=== PATIENT | male | born 1960 | race Two or more races ===

== ENCOUNTER 2020-12-21 23:04 | Emergency (ER) | payer MEDICAID ==
--- NOTE | 2020-12-21 23:58 | EDM.PDOC ---
ED HPI GENERAL MEDICAL PROBLEM - General Chief Complaint: Upper Extremity Injury/Pain Stated Complaint: L SHOULDER AND NECK PAIN Time Seen by Provider: 12/21/20 23:12 Source of Information: Reports: Patient History Limitations: Reports: No Limitations - History of Present Illness INITIAL COMMENTS - FREE TEXT/NARRATIVE: The patient presents with left sided neck pain. This stared a couple days ago after he woke up. He does not recall any injury. 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 He also has pain to the posterior shoulder. He has no numbness or weakness down the left arm. He has no fever, chills, cough, congestion, runny nose, chest pain or shortness of breath, abdominal pain, nausea or vomiting. Onset: Gradual Duration: Day(s): (2) Location: Reports: Neck, Upper Extremity, Left (shoulder) Quality: Reports: Sharp Severity: Moderate Improves with: Reports: Immobilization Worsens with: Reports: Movement Context: Denies: Trauma Associated Symptoms: Reports: No Other Symptoms Left Shoulder Pain Score (Numeric/FACES): 7 - Related Data Allergies Allergy/AdvReac Type Severity Reaction Status Date / Time No Known Allergies Allergy Verified 12/21/20 23:13 Home Meds: Home Meds ALPRAZolam [Xanax] ASDIRECTED 12/21/20 [History] Dutasteride ASDIRECTED 12/21/20 [History] Finasteride 5 mg PO ASDIRECTED 12/21/20 [History] Ketoconazole [Xolegel] ASDIRECTED 12/21/20 [History] LORazepam [Ativan] 2 mg PO Q6H PRN 12/21/20 [History] Losartan [Cozaar] 50 mg PO DAILY 12/21/20 [History] Metoprolol Succinate 50 mg PO ASDIRECTED 12/21/20 [History] Nystatin [Nystatin Crm] ASDIRECTED 12/21/20 [History] Omeprazole 20 mg PO ASDIRECTED 12/21/20 [History] atorvaSTATin [Lipitor] 10 mg PO ASDIRECTED 12/21/20 [History] fluocinolone acetonide oiL [Flac Otic Oil] 20 ml OT ASDIRECTED 12/21/20 [History] Cyclobenzaprine [Flexeril] 10 mg PO TID PRN #20 tab 12/22/20 [Rx] Past Medical History - Past Health History Medical/Surgical History: Denies Medical/Surgical History HEENT History: Reports: Impaired Vision Cardiovascular History: Reports: High Cholesterol, Hypertension Respiratory History: Reports: None Gastrointestinal History: Reports: GERD Genitourinary History: Reports: None Musculoskeletal History: Reports: None Neurological History: Reports: None Psychiatric History: Reports: Anxiety Endocrine/Metabolic History: Reports: None Hematologic History: Reports: None Immunologic History: Reports: None Oncologic (Cancer) History: Reports: None Dermatologic History: Reports: None - Infectious Disease History Infectious Disease History: Reports: None Social & Family History - Family History Family Medical History: No Pertinent Family History - Tobacco Use Tobacco Use Status *Q: Never Tobacco User - Caffeine Use Caffeine Use: Reports: Coffee - Recreational Drug Use Recreational Drug Use: No Review of Systems - Review of Systems Review Of Systems: See Below Constitutional: Reports: No Symptoms Eyes: Reports: No Symptoms Ears: Reports: No Symptoms Nose: Reports: No Symptoms Mouth/Throat: Reports: No Symptoms Respiratory: Reports: No Symptoms Cardiovascular: Reports: No Symptoms GI/Abdominal: Reports: No Symptoms Genitourinary: Reports: No Symptoms Musculoskeletal: Reports: Neck Pain, Shoulder Pain ED EXAM, GENERAL - Physical Exam Exam: See Below Exam Limited By: No Limitations General Appearance: Alert, No Apparent Distress Ears: Normal External Exam Nose: Normal Inspection Head: Atraumatic, Normocephalic Neck: Other (Mild pain upon palpation to the left lateral neck and to the posterior shoulder. Good sensation and pulsed distally. He also has equal strength in his arms.) Respiratory/Chest: No Respiratory Distress, Lungs Clear, Normal Breath Sounds Cardiovascular: Regular Rate, Rhythm, No Edema, No Murmur GI/Abdominal: Soft, Non-Tender, No Organomegaly, No Mass Back Exam: Normal Inspection Extremities: Normal Inspection Course - Vital Signs Last Recorded V/S: Last Vital Signs Temp 97.3 F 12/21/20 23:24 Pulse 73 12/21/20 23:24 Resp 18 12/21/20 23:24 BP 110/95 H 12/21/20 23:24 Pulse Ox 94 L 12/21/20 23:24 - Orders/Labs/Meds Orders: Active Orders 24 hr Category Date Time Status Cervical Spine 2V or 3V [CR] Stat Exams 12/21/20 23:38 Taken - Re-Assessments/Exams Free Text/Narrative Re-Assessment/Exam: 12/21/20 23:57 I ordered an x-ray of his neck. 12/22/20 00:01 His x-ray shows some degenerative changes. He has an old chip fracture off of the spinous process of C7. I will get him on some flexeril. Departure - Departure Time of Disposition: 00:05 Disposition: Home, Self-Care 01 Condition: Good Clinical Impression: Cervical radiculopathy - Discharge Information *PRESCRIPTION DRUG MONITORING PROGRAM REVIEWED*: Not Applicable *COPY OF PRESCRIPTION DRUG MONITORING REPORT IN PATIENT JOSELIN: Not Applicable Prescriptions: Cyclobenzaprine [Flexeril] 10 mg PO TID PRN #20 tab PRN Reason: Pain Referrals: Barbara Canales NP [Primary Care Provider] - 1 Week Forms: ED Department Discharge Additional Instructions: Ice your neck for 15 minutes 3 times per day for 2 days. Take tylenol or motrin for the pain. You can also try the flexeril 10mg by mouth 3 times per day as needed for pain. Do not take that when you are driving. It can make you sleepy. Follow up with Karen Canales within a week. Please return if you are worse. Sepsis Event Note (ED) - Evaluation Sepsis Screening Result: No Definite Risk - Focused Exam Vital Signs: Vital Signs Temp Pulse Resp BP Pulse Ox 12/21/20 23:24 97.3 F 73 18 110/95 H 94 L - My Orders Last 24 Hours: My Active Orders 12/21/20 23:38 Cervical Spine 2V or 3V [CR] Stat - Assessment/Plan Last 24 Hours: My Active Orders 12/21/20 23:38 Cervical Spine 2V or 3V [CR] Stat
--- NOTE | 2020-12-22 05:53 | CR ---
Cervical spine: AP, lateral and odontoid views of the cervical spine were obtained. Comparison: No prior cervical spine imaging is available. Moderate disc space narrowing is noted at C5-6 with anterior osteophytes. Small osteophytes are noted anteriorly at C4-5. Vertebral body heights are maintained. Small calcification is noted off the tip of the spinous process of C7 which appears to be old. No acute fracture or subluxation is appreciated. Minimal scoliosis is noted. Impression: 1. Mild degenerative change as noted above. Mild scoliosis is also noted. 2. Nothing acute is seen on 3 view cervical spine study. Diagnostic code #2
== END 2020-12-22 00:10 | disposition home or self-care (01) ==
LOC: JD.ED 23:04
DX: M54.12 Radiculopathy, cervical region (principal); E78.00 Pure hypercholesterolemia, unspecified; I10 Essential (primary) hypertension; K21.9 Gastro-esophageal reflux disease without esophagitis; Z79.899 Other long term (current) drug therapy
CPT/HCPCS: 72040; 72040-26; 99283

== ENCOUNTER 2021-01-17 19:35 | Emergency (ER) | payer MEDICAID ==
--- NOTE | 2021-01-17 20:42 | EDM.PDOC ---
ED HPI GENERAL MEDICAL PROBLEM - General Chief Complaint: ENT Problem Stated Complaint: ear pain Time Seen by Provider: 01/17/21 19:50 Source of Information: Reports: Patient, RN Notes Reviewed History Limitations: Reports: No Limitations - History of Present Illness INITIAL COMMENTS - FREE TEXT/NARRATIVE: Patient is a 60-year-old male presenting to the emergency department with complaints of bilateral ear pain. He developed symptoms approximately 4 days ago. He was seen at the [facility] on January 13 and started on Augmentin and Fluocinolone Acetonide oil drops. Prescription was for a 7-day course of Augmentin, however he increase the dose to 3 times daily and finished his last dose this morning. Reports ongoing throbbing pain in both ears. He has had no fever, chills, nausea, or vomiting. 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 He is scheduled to see an ENT specialist in [place] on Friday. Bilateral Ear Pain Score (Numeric/FACES): 6 - Related Data Allergies Allergy/AdvReac Type Severity Reaction Status Date / Time No Known Allergies Allergy Verified 01/17/21 19:43 Home Meds: Home Meds Losartan [Cozaar] 50 mg PO DAILY 12/21/20 [History] Nystatin [Nystatin Crm] 1 applic OP ASDIRECTED 12/21/20 [History] Omeprazole 20 mg PO ASDIRECTED 12/21/20 [History] atorvaSTATin [Lipitor] 10 mg PO ASDIRECTED 12/21/20 [History] fluocinolone acetonide oiL [Flac Otic Oil] 20 ml OT ASDIRECTED 12/21/20 [History] Aspirin 81 mg PO DAILY 01/17/21 [History] Cefdinir [Omnicef] 300 mg PO BID #20 cap 01/17/21 [Rx] Fluticasone Propionate [Flonase] 16 gm NS DAILY #1 bottle 01/17/21 [Rx] Hydrocodone/Acetaminophen [Hydrocodone-Acetamin 5-325 mg] 1 each PO Q4H PRN #12 tablet 01/17/21 [Rx] Past Medical History - Past Health History Medical/Surgical History: Denies Medical/Surgical History HEENT History: Reports: Impaired Vision, Other (See Below) Other HEENT History: Ruptured Ear Drum Cardiovascular History: Reports: High Cholesterol, Hypertension Respiratory History: Reports: None Gastrointestinal History: Reports: GERD Genitourinary History: Reports: None Musculoskeletal History: Reports: None Neurological History: Reports: None Psychiatric History: Reports: Anxiety Endocrine/Metabolic History: Reports: None Hematologic History: Reports: None Immunologic History: Reports: None Oncologic (Cancer) History: Reports: None Dermatologic History: Reports: None - Infectious Disease History Infectious Disease History: Reports: None Social & Family History - Family History Family Medical History: No Pertinent Family History - Tobacco Use Tobacco Use Status *Q: Never Tobacco User - Caffeine Use Caffeine Use: Reports: Coffee - Recreational Drug Use Recreational Drug Use: No ED ROS ENT - Review of Systems Review Of Systems: Comprehensive ROS is negative, except as noted in HPI. ED EXAM, ENT - Physical Exam Exam: See Below Exam Limited By: No Limitations General Appearance: Alert, WD/WN, No Apparent Distress Ears: Other (Significant scar tissue to bilateral TMs. There does appear to be some areas of bulging as well as erythema bilaterally.). No: TM Blood Neck: Normal Inspection, Supple, Non-Tender, Full Range of Motion Respiratory/Chest: No Respiratory Distress, Lungs Clear, Normal Breath Sounds, No Accessory Muscle Use, Chest Non-Tender Cardiovascular: Normal Peripheral Pulses, Regular Rate, Rhythm, No Edema, No Gallop, No JVD, No Murmur, No Rub Neurological: Alert, Oriented, CN II-XII Intact, Normal Cognition, Normal Gait, Normal Reflexes, No Motor/Sensory Deficits Psychiatric: Normal Affect, Normal Mood Skin: Warm, Dry, Intact, Normal Color, No Rash Course - Vital Signs Last Recorded V/S: Last Vital Signs Temp 97.2 F 01/17/21 19:40 Pulse 88 01/17/21 19:40 Resp 16 01/17/21 19:40 BP 126/70 01/17/21 19:40 Pulse Ox 99 01/17/21 19:40 - Re-Assessments/Exams Free Text/Narrative Re-Assessment/Exam: Patient is a 60-year-old male presenting to the emergency department with complaints of bilateral ear pain to the bilateral TMs. . This began about 4 days ago. He was put on Augmentin for 7-day course, however he took it 3 times daily, therefore he finished his treatment this morning. Denies any improvement in the pain. He has history of bilateral ruptured eardrums. On exam, there is a significant amount of scar tissue. There is some underlying erythema and bulging bilaterally. I will start patient on a prescription of cefdinir and have him continue his eardrops. Also recommend Flonase nasal spray. Patient will be given hydrocodone with Tylenol for pain. He has an appointment with an ENT specialist on Friday. Recommend that he keep this for evaluation. Discharge instructions as documented. Departure - Departure Time of Disposition: 20:42 Disposition: Home, Self-Care 01 Condition: Good Clinical Impression: Otitis media Qualifiers: Otitis media type: suppurative Chronicity: acute Laterality: bilateral Recurrence: recurrent Spontaneous tympanic membrane rupture: without spontaneous rupture Qualified Code(s): H66.006 - Acute suppurative otitis media without spontaneous rupture of ear drum, recurrent, bilateral - Discharge Information *PRESCRIPTION DRUG MONITORING PROGRAM REVIEWED*: Yes *COPY OF PRESCRIPTION DRUG MONITORING REPORT IN PATIENT JOSELIN: No Prescriptions: Fluticasone Propionate [Flonase] 16 gm NS DAILY #1 bottle Hydrocodone/Acetaminophen [Hydrocodone-Acetamin 5-325 mg] 1 each PO Q4H PRN #12 tablet PRN Reason: Pain Cefdinir [Omnicef] 300 mg PO BID #20 cap Instructions: Otitis Media, Adult, [id number] Referrals: Barbara Canales NP [Primary Care Provider] - Additional Instructions: You were seen in the emergency department today for pain to both of your ears. There does appear to be ongoing infection. You have been started on cefdinir which is an antibiotic. Take this as prescribed. Recommend continue eardrops as previously prescribed. Use of Flonase nasal spray, 1 spray to each nostril daily. Recommend Tylenol and ibuprofen routinely for pain. For pain not relieved by this, a prescription of hydrocodone with Tylenol has been provided. Take this only as prescribed. Do not work or drive for 12 hours after taking this as this can be sedating. Keep your appointment with the ENT specialist in [place] as scheduled. Return to ER for any new or worsening symptoms. Sepsis Event Note (ED) - Evaluation Sepsis Screening Result: No Definite Risk - Focused Exam Vital Signs: Vital Signs Temp Pulse Resp BP Pulse Ox 01/17/21 19:40 97.2 F 88 16 126/70 99
== END 2021-01-17 20:55 | disposition home or self-care (01) ==
LOC: JD.ED 19:35
DX: H66.006 Acute suppurative otitis media without spontaneous rupture of ear drum, recurrent, bilateral (principal); E78.00 Pure hypercholesterolemia, unspecified; I10 Essential (primary) hypertension; Z79.899 Other long term (current) drug therapy
CPT/HCPCS: 99282; 99283

== ENCOUNTER 2021-02-13 03:01 | Emergency (ER) | payer MEDICAID ==
--- NOTE | 2021-02-13 03:50 | EDM.PDOC ---
ED HPI GENERAL MEDICAL PROBLEM - General Chief Complaint: ENT Problem Stated Complaint: RT EAR PAIN Time Seen by Provider: 02/13/21 03:26 Source of Information: Reports: Patient History Limitations: Reports: No Limitations - History of Present Illness INITIAL COMMENTS - FREE TEXT/NARRATIVE: Mr. Cobb is a very pleasant 60-year-old man who now presents the ED stating that he developed a pulsating pressure sensation in his right ear yesterday morning, 02/12/2021. No associated fever, nasal or sinus congestion. No decreased hearing. He states that he has experienced the same sensation numerous times over the past year or so. He states that he has been seen at the [facility] on 2 prior occasions, and that no abnormalities were found, but that he was prescribed some sort of an eardrop that helped with the sensation. He does not recall the name of that eardrop. He has not taken any [id number] or home remedies since the onset of his symptoms. Here in the ED this morning, the patient is found to be hemodynamically stable, afebrile, saturating 98% on room air. He appears to be comfortable, in no acute distress. Prior to yesterday morning, the patient denies having a recent fever, chills, sore throat, ear pain, nasal or sinus congestion, cough, dyspnea, chest pain, palpitations, nausea, vomiting, constipation, diarrhea, abdominal pain, urinary symptoms, recent weight gain or weight loss, recent bloody bowel movements or black bowel movements, recent joint aches, headaches, or rashes. The patient's PCP is Barbara Canales NP. He sees SANAZ Gutierrez, at the [facility]. He has received 2 COVID vaccinations. Right Ear Pain Score (Numeric/FACES): 7 - Related Data Allergies Allergy/AdvReac Type Severity Reaction Status Date / Time No Known Allergies Allergy Verified 01/17/21 19:43 Home Meds: Home Meds Losartan [Cozaar] 50 mg PO DAILY 12/21/20 [History] Nystatin [Nystatin Crm] 1 applic OP ASDIRECTED 12/21/20 [History] Omeprazole 20 mg PO ASDIRECTED 12/21/20 [History] atorvaSTATin [Lipitor] 10 mg PO ASDIRECTED 12/21/20 [History] fluocinolone acetonide oiL [Flac Otic Oil] 20 ml OT ASDIRECTED 12/21/20 [History] Aspirin 81 mg PO DAILY 01/17/21 [History] Cefdinir [Omnicef] 300 mg PO BID #20 cap 01/17/21 [Rx] Fluticasone Propionate [Flonase] 16 gm NS DAILY #1 bottle 01/17/21 [Rx] Hydrocodone/Acetaminophen [Hydrocodone-Acetamin 5-325 mg] 1 each PO Q4H PRN #12 tablet 01/17/21 [Rx] Past Medical History HEENT History: Reports: Impaired Vision (wears glasses), Other (See Below) (Ruptured left TM) Cardiovascular History: Reports: High Cholesterol, Hypertension Gastrointestinal History: Reports: GERD Psychiatric History: Reports: Anxiety (untreated) - Past Surgical History HEENT Surgical History: Reports: Adenoidectomy, Tonsillectomy GI Surgical History: Reports: Appendectomy, EGD (x 1) Social & Family History - Tobacco Use Tobacco Use Status *Q: Never Tobacco User - Caffeine Use Caffeine Use: Reports: Coffee - Alcohol Use Alcohol Use History: No - Recreational Drug Use Recreational Drug Use: No - Living Situation & Occupation Living situation: Reports: , Alone Occupation: Unemployed ED ROS ENT - Review of Systems Review Of Systems: Comprehensive ROS is negative, except as noted in HPI. ED EXAM, ENT - Physical Exam Exam: See Below Exam Limited By: No Limitations General Appearance: Alert, WD/WN, No Apparent Distress Eye Exam: Bilateral Eye: EOMI, Normal Inspection Ears: Normal External Exam, Normal Canal, Hearing Grossly Normal, Other (Scar noticed on the right TM, otherwise normal appearance) Nose: Normal Inspection, Normal Mucousa, No Blood Mouth/Throat: Normal Inspection, Normal Gums, Normal Lips, Normal Oropharynx, Normal Teeth Head: Atraumatic, Normocephalic Neck: Normal Inspection, Supple, Non-Tender, Full Range of Motion. No: Carotid Bruit, Lymphadenopathy (L), Lymphadenopathy (R) Respiratory/Chest: No Respiratory Distress, Lungs Clear, Normal Breath Sounds, No Accessory Muscle Use Cardiovascular: Normal Peripheral Pulses, Regular Rate, Rhythm, No Edema, No Gallop, No JVD, No Murmur, No Rub Course - Vital Signs Last Recorded V/S: Last Vital Signs Temp 35.9 C L 02/13/21 03:11 Pulse 69 08/03/21 03:11 Resp 15 02/13/21 03:11 BP 117/79 02/13/21 03:11 Pulse Ox 98 02/13/21 03:11 - Re-Assessments/Exams Free Text/Narrative Re-Assessment/Exam: 02/13/21 03:43 As above, the patient has been experiencing recurrent episodes of a pulsating pressure sensation in his right ear for more than a year. He has been seen at [facility] twice before, and he states that no abnormalities were found, but that he was prescribed some sort of an eardrop. He now redeveloped the same symptoms yesterday morning. On examination, the patient has some right tympanic membrane scarring, but I do not see any signs of an infection. There are no carotid bruits. I would be happy to prescribe him the same eardrops that he was prescribed from [facility], however, the patient does not recall the name of that medicine. I am therefore recommending that he call [facility] later this morning to see if they would be willing to call in a prescription. If not, the patient may need to be seen in [place]. Departure - Departure Time of Disposition: 03:45 Disposition: Home, Self-Care 01 Condition: Good Clinical Impression: Right ear pain - Discharge Information *PRESCRIPTION DRUG MONITORING PROGRAM REVIEWED*: Not Applicable *COPY OF PRESCRIPTION DRUG MONITORING REPORT IN PATIENT JOSELIN: Not Applicable Referrals: Barbara Canales NP [Primary Care Provider] - Yumiko Arriaga PA-C [Physician Packaging Supervisor] - Additional Instructions: You were seen in the emergency room for the recurrent sensation of a pulsing pressure in your right ear. On examination, no infection or other acute abnormality was seen. The cause of your recurrent symptoms is not known. We recommend that you call SANAZ Gutierrez, at the [facility] later this morning, to see if she would be willing to call in a prescription for the same medicine that she previously treated you with. If any other problems, please do not hesitate to return to the ER. Sepsis Event Note (ED) - Evaluation Sepsis Screening Result: No Definite Risk - Focused Exam Vital Signs: Vital Signs Temp Pulse Resp BP Pulse Ox 02/13/21 03:11 35.9 C L 69 15 117/79 98
== END 2021-02-13 03:59 | disposition home or self-care (01) ==
LOC: JD.ED 03:01
DX: H92.01 Otalgia, right ear (principal); E78.00 Pure hypercholesterolemia, unspecified; I10 Essential (primary) hypertension; K21.9 Gastro-esophageal reflux disease without esophagitis; Z79.82 Long term (current) use of aspirin; Z79.899 Other long term (current) drug therapy
CPT/HCPCS: 99282

== ENCOUNTER 2021-06-22 09:10 | Emergency (ER) | payer MEDICAID ==
[2021-06-22] MEDS ORDERED: Sodium Chloride 0.9% 10 ML Syringe FLUSH PRN (09:36)
[2021-06-22] MEDS ORDERED: cefTRIAXone 1 GM in Sodium Chloride 0.9% 100 ML IV ONE (09:36)
--- NOTE | 2021-06-22 09:47 | EDM.PDOC ---
ED HPI GENERAL MEDICAL PROBLEM - General Chief Complaint: ENT Problem Stated Complaint: SWELLING IN MOUTH AND SINUS PRESSURE Time Seen by Provider: 06/22/21 09:28 Source of Information: Reports: Patient History Limitations: Reports: No Limitations - History of Present Illness INITIAL COMMENTS - FREE TEXT/NARRATIVE: 60-year-old male presents to the ED for evaluation of swollen painful gingiva A. History suggest this is a problem has been going on for 2 to 3 months. He has been using bleach on his teeth which is causing increased irritation of the gingiva. He was to the dentist recently and told that he does not have any dental caries or an actual dental infection. Is considered to have periodontal disease. He has hypertrophic gums over several teeth mostly along the bicuspids and molars. This involves both upper and lower gingivae. He has been on course of penicillin and clindamycin 300 mg 3 times daily with little relief. He states gums are bleeding with brushing. Teeth or the gingiva are quite painful particularly in areas that are swollen. Onset: Unknown/Unsure (Problems going on for at least 2 to 3 months.) Duration: Chronic Location: Reports: Face (Gingivitis and periodontal disease) Quality: Reports: Ache, Throbbing, Other (Frequent bleeding with brushing teeth from the gingiva) Severity: Moderate Improves with: Reports: None Worsens with: Reports: Other Context: Denies: Activity (Brushing his teeth and eating), Exercise, Sick Contact, Trauma, Other Associated Symptoms: Denies: No Other Symptoms, Confusion, Chest Pain, Cough, cough w sputum, Diaphoresis, Fever/Chills, Headaches, Loss of Appetite, Malaise, Nausea/Vomiting, Rash, Seizure Treatments REGISTER IN CHANCERY: Reports: Acetaminophen, Other (see below) (Finished his last dose of clindamycin this morning) - Related Data Allergies Allergy/AdvReac Type Severity Reaction Status Date / Time No Known Allergies Allergy Verified 06/22/21 09:24 Home Meds: Home Meds Losartan [Cozaar] 50 mg PO DAILY 12/21/20 [History] Nystatin [Nystatin Crm] 1 applic OP ASDIRECTED 12/21/20 [History] Omeprazole 20 mg PO ASDIRECTED 12/21/20 [History] atorvaSTATin [Lipitor] 10 mg PO ASDIRECTED 12/21/20 [History] fluocinolone acetonide oiL [Flac Otic Oil] 20 ml OT ASDIRECTED 12/21/20 [Histo ry] Aspirin 81 mg PO DAILY 01/17/21 [History] Cefdinir [Omnicef] 300 mg PO BID #20 cap 01/17/21 [Rx] Fluticasone Propionate [Flonase] 16 gm NS DAILY #1 bottle 01/17/21 [Rx] Hydrocodone/Acetaminophen [Hydrocodone-Acetamin 5-325 mg] 1 each PO Q4H PRN #12 tablet 01/17/21 [Rx] Doxycycline [Vibra-Tabs] 100 mg PO Q12HR #24 tab 06/22/21 [Rx] Past Medical History - Past Health History Medical/Surgical History: Denies Medical/Surgical History HEENT History: Reports: Impaired Vision, Other (See Below) Other HEENT History: Ruptured Ear Drum Cardiovascular History: Reports: High Cholesterol, Hypertension Respiratory History: Reports: None Gastrointestinal History: Reports: GERD Genitourinary History: Reports: None Musculoskeletal History: Reports: None Neurological History: Reports: None Psychiatric History: Reports: Anxiety Endocrine/Metabolic History: Reports: None Hematologic History: Reports: None Immunologic History: Reports: None Oncologic (Cancer) History: Reports: None Dermatologic History: Reports: None - Infectious Disease History Infectious Disease History: Reports: None - Past Surgical History HEENT Surgical History: Reports: Adenoidectomy, Tonsillectomy GI Surgical History: Reports: Appendectomy, EGD Social & Family History - Family History Family Medical History: No Pertinent Family History - Tobacco Use Tobacco Use Status *Q: Never Tobacco User Second Hand Smoke Exposure: No - Caffeine Use Caffeine Use: Reports: Coffee - Recreational Drug Use Recreational Drug Use: No - Living Situation & Occupation Living situation: Reports: , Alone Occupation: Unemployed ED ROS ENT - Review of Systems Review Of Systems: See Below Constitutional: Denies: Fever, Chills, Malaise, Weakness, Fatigue, Night Sweats HEENT: Reports: Other (Painful gingiva with frequent bleeding from gingiva margins with brushing his teeth for the last 2 to 3 months) Respiratory: Reports: No Symptoms Cardiovascular: Reports: No Symptoms Endocrine: Reports: No Symptoms GI/Abdominal: Reports: No Symptoms : Reports: No Symptoms Musculoskeletal: Reports: No Symptoms Skin: Reports: No Symptoms Neurological: Reports: No Symptoms Psychiatric: Reports: No Symptoms Hematologic/Lymphatic: Reports: No Symptoms Immunologic: Reports: No Symptoms ED EXAM, ENT - Physical Exam Exam: See Below Exam Limited By: Language Barrier ([place] descent with a hard accent but he understands [place] language well.) General Appearance: Alert, WD/WN, Other (Temperature is 36.6 degrees heart rate 87 in sinus respiratory 16 with O2 sats of 95% room air. BP is 1 4491) Eye Exam: Bilateral Eye: Normal Inspection (No blepharal pallor) Mouth/Throat: Normal Teeth, Bleeding (From the), Dental Tenderness (From the gingiva margins particular along the bicuspid and molar teeth.), Gum Swelling (Primarily over the bicuspid and molar teeth). No: Dental Pain ( gingiva ma rgins), Muffled Voice, Oral Ulcers, Perioral Cyanosis, Peritonsillar Mass, Pharyngeal Erythema, Teething, Throat Pain, Throat Swelling, Tongue Swelling, Tonsillar Erythema, Tonsillar Exudates, Tonsillar Swelling, Trismus, Uvular Deviation, Uvular Edema Head: Atraumatic, Normocephalic Neck: Normal Inspection, Supple, Non-Tender, Full Range of Motion. No: Carotid Bruit, Lymphadenopathy (L), Lymphadenopathy (R) Respiratory/Chest: No Respiratory Distress, Lungs Clear, Normal Breath Sounds, Chest Non-Tender Cardiovascular: Normal Peripheral Pulses, Regular Rate, Rhythm, No Edema, No Gallop, No Murmur, No Rub GI/Abdominal: Normal Bowel Sounds, Soft, Non-Tender, No Organomegaly, No Distention Back: Normal Inspection, Full Range of Motion. No: CVA Tenderness (L), CVA Tenderness (R) Extremities: Normal Inspection, Normal Range of Motion, Non-Tender, No Pedal Edema Neurological: Alert, Oriented, CN II-XII Intact, Normal Cognition Psychiatric: Normal Affect, Normal Mood Skin: Warm, Dry, Intact, Normal Color, No Rash Course - Vital Signs Last Recorded V/S: Last Vital Signs Temp 36.6 C 06/22/21 09:22 Pulse 87 06/22/21 09:22 Resp 16 06/22/21 09:22 BP 144/91 H 06/22/21 09:22 Pulse Ox 95 06/22/21 09:22 - Orders/Labs/Meds Orders: Active Orders 24 hr Category Date Time Status Peripheral IV Insertion Adult [OM.PC] Stat Oth 06/22/21 09:36 Ordered Labs: Laboratory Tests 06/22/21 06/22/21 Range/Units 09:45 09:45 WBC 9.08 H (4.23-9.07) K/mm3 RBC 5.22 (4.63-6.08) M/mm3 Hgb 15.3 (13.7-17.5) gm/dl Hct 45.6 (40.1-51.0) % MCV 87.4 (79.0-92.2) fl MCH 29.3 (25.7-32.2) pg MCHC 33.6 (32.2-35.5) g/dl RDW Std Deviation 43.5 (35.1-43.9) fL Plt Count 291 (163-337) K/mm3 MPV 10.4 (9.4-12.3) fl Neut % (Auto) 62.1 (34.0-67.9) % Lymph % (Auto) 27.0 (21.8-53.1) % [place] % (Auto) 8.0 (5.3-12.2) % Eos % (Auto) 2.3 (0.8-7.0) Baso % (Auto) 0.3 (0.1-1.2) % Neut # (Auto) 5.63 H (1.78-5.38) K/mm3 Lymph # (Auto) 2.45 (1.32-3.57) K/mm3 [place] # (Auto) 0.73 (0.30-0.82) K/mm3 Eos # (Auto) 0.21 (0.04-0.54) K/mm3 Baso # (Auto) 0.03 (0.01-0.08) K/mm3 Sodium 139 (136-145) mEq/L Potassium 4.2 (3.5-5.1) mEq/L Chloride 103 (98-107) mEq/L Carbon Dioxide 26 (21-32) mEq/L Anion Gap 14.2 (5-15) BUN 19 H (7-18) mg/dL Creatinine 1.1 (0.7-1.3) mg/dL Est Cr Clr Drug Dosing TNP Estimated GFR (MDRD) > 60 (>60) mL/min BUN/Creatinine Ratio 17.3 (14-18) Glucose 128 H (70-99) mg/dL Calcium 9.0 (8.5-10.1) mg/dL Total Bilirubin 0.6 (0.2-1.0) mg/dL AST 19 (15-37) U/L ALT 33 (16-63) U/L Alkaline Phosphatase 108 (46-116) U/L C-Reactive Protein <0.2 (<1.0) mg/dL Total Protein 7.8 (6.4-8.2) g/dl Albumin 4.0 (3.4-5.0) g/dl Globulin 3.8 gm/dL Albumin/Globulin Ratio 1.1 (1-2) Meds: Medications Discontinued Medications Generic Name Dose Route Start Last Admin Trade Name Freq PRN Reason Stop Dose Admin Ceftriaxone Sodium 1 gm/ 100 mls @ 200 mls/hr 06/22/21 09:36 06/22/21 09:49 Sodium Chloride IV 06/22/21 10:05 200 mls/hr ONETIME ONE Administration Sodium Chloride 10 ml 06/22/21 09:36 06/22/21 09:49 Sodium Chloride 0.9% 10 Ml Syringe FLUSH 10 ml ASDIRECTED PRN Administration Keep Vein Open - Radiology Interpretation Free Text/Narrative:: 60-year-old male presents to the ED with essentially periodontal disease irritated by continuous use of bleach to cleanse his gingiva margins. He has hypertrophic gums over the bicuspid and molar teeth. There appears to be a mild component of infection. Plan will be to give him Rocephin 1 g IV with lab work to be obtained. Plan will then be to place him on doxycycline 100 mg twice daily for 12 days. I am going to have him stop using bleach on his teeth and just use an [id number] mouthwash such as Biotene twice daily. I suspect a good portion of the gingival irritation is coming from the bleach. - Re-Assessments/Exams Free Text/Narrative Re-Assessment/Exam: 06/22/21 10:58 White count is 9.08. Differential reveals 62% neutrophils. Hemoglobin is 15.3 with hematocrit of 45.6 platelet counts 291,000. Sodium is 139 with a potassium of 4.2. Chloride 103 with a bicarb of 26. Anion gap is 14.2. BUN is 19 with a creatinine of 1.1 GFR is greater than 60. Glucose is 128. Calcium 9.0 liver function normal C-reactive protein less than 0.2 total protein 7.8 with an albumin fraction of 4.0. Patient has completed 1 g of Rocephin IV to help reduce infection in his gingiva. He will be discharged home on Biotene oral mouth rinse twice daily and doxycycline 100 mg twice daily for the next 12 days. Advised follow-up with commutator presser as planned. Departure - Departure Time of Disposition: 11:19 Disposition: Home, Self-Care 01 Condition: Fair Clinical Impression: Gingivitis - Discharge Information *PRESCRIPTION DRUG MONITORING PROGRAM REVIEWED*: Not Applicable *COPY OF PRESCRIPTION DRUG MONITORING REPORT IN PATIENT JOSELIN: Not Applicable Prescriptions: Doxycycline [Vibra-Tabs] 100 mg PO Q12HR #24 tab Instructions: Gingivitis, [id number] Referrals: PCP,None [Primary Care Provider] - Forms: ED Department Discharge Additional Instructions: Evaluation in the emergency room today in regards to persistent problems with swollen painful gingiva or gums particularly along the upper bicuspids and molar teeth both upper and lowers. This appears to been going on for a lengthy period of time. On examination there are several areas of the gingiva that are boggy and reddened and inflamed and no doubt tender. They would be irritated by teeth brushing but this is important to continue with a soft bristle old toothbrush. Suggest use of Biotene oral mouth rinse twice daily morning and bedtime which will reduce inflammation and reduce overall bacterial mateus in your mouth. Antibiotic will be doxycycline 100 mg twice daily for the next 12 days to clear up any persistent infection in the gingiva. Over time the gingiva swelling should go away without any further irritation or irritating substances on the gums. The teeth are overall in very good condition and plaque is unlikely to be the cause of gingivitis at this time. All lab test done through the ER today are normal with no signs of active infection causing systemic illness. Follow- up with dentist if any further problems occur. Sepsis Event Note (ED) - Evaluation Sepsis Screening Result: No Definite Risk - Focused Exam Vital Signs: Vital Signs Temp Pulse Resp BP Pulse Ox 06/22/21 09:22 36.6 C 87 16 144/91 H 95 - My Orders Last 24 Hours: My Active Orders 06/22/21 09:36 Peripheral IV Insertion Adult [OM.PC] Stat - Assessment/Plan Last 24 Hours: My Active Orders 06/22/21 09:36 Peripheral IV Insertion Adult [OM.PC] Stat
== END 2021-06-22 11:30 | disposition home or self-care (01) ==
LOC: JD.ED 09:10
DX: K05.10 Chronic gingivitis, plaque induced (principal); E78.00 Pure hypercholesterolemia, unspecified; I10 Essential (primary) hypertension; K21.9 Gastro-esophageal reflux disease without esophagitis; Z79.82 Long term (current) use of aspirin; Z79.899 Other long term (current) drug therapy
CPT/HCPCS: 36415; 80053; 85025; 86140; 96365; 99283; J0696